=== PATIENT | male | born 1980 | race Caucasian/White ===

== ENCOUNTER 2022-11-04 12:00 | Emergency (ER) | payer OTHER ==
[~2022-11-04] VITALS: Ht 175.3 cm; Wt 80.7 kg
[2022-11-04] MEDS ORDERED: IOHEXOL 350 100 ML INFUS..BTL ONE (12:48)
[2022-11-04] MEDS ORDERED: IV NORMAL SALINE 250 ML IV ONE (12:48)
[2022-11-04] MEDS ORDERED: SWABABLE VALVE TRANSFER SET EA MC ONE (12:48)
[2022-11-04 12:50] LABS: HEMATOCRIT 44.8 % (36.7-47.1); MEAN CORPUSCULAR HEMOGLOBIN 29.7 uug (23.8-33.4); MEAN CORPUSCULAR VOLUME 90.1 fL (73.0-96.2); PLATELET COUNT (AUTO) 189 K/uL (152-348)
[2022-11-04 13:06] LABS: ETHANOL < 3 MG/DL (0-0)
[2022-11-04 13:38] LABS: CARBON DIOXIDE 27 mmol/L (21-32); CHLORIDE 106 mmol/L (98-107); GLUCOSE 97 mg/dL (74-106); UREA NITROGEN, BLOOD 18 mg/dL (7-18)
[2022-11-04] MEDS ORDERED: LAMICTAL (13:38)
[2022-11-04] MEDS ORDERED: KEPPRA (13:38)
[2022-11-04] MEDS ORDERED: ASPIRIN 81 MG TAB.CHEW ONE (13:41)
[2022-11-04] MEDS ORDERED: ASPIRIN 81 MG TAB.CHEW PO ONE (13:45)
[2022-11-04 13:52] LABS: ALANINE AMINOTRANSFERASE 31 U/L (16-63); ALKALINE PHOSPHATASE 47 U/L (50-136); ASPARTATE AMINOTRANSFERASE 13 U/L (15-37); BILIRUBIN,DIRECT 0.1 mg/dL (0.0-0.2); BILIRUBIN,TOTAL 0.3 mg/dL (0.2-1.0); TOTAL PROTEIN, SERUM 6.6 g/dL (6.4-8.2)
[2022-11-04 13:56] LABS: *BILIRUBIN,URIN NEGATIVE (NEGATIVE); *BLOOD, URINE NEGATIVE (NEGATIVE); *CLARITY,URINE CLEAR (CLEAR); *KETONES,URINE NEGATIVE (NEGATIVE); *UROBILINOGEN,URINE 0.2 E.U./dl (NORMAL); LEUKOCYTE ESTERASE ,URINE NEGATIVE (NEGATIVE); NITRITE, URINE NEGATIVE (NEGATIVE); UGLUCOSE NEGATIVE (NEGATIVE)
[2022-11-04 14:01] LABS: *COLOR,URINE STRAW (YELLOW)
[2022-11-04 14:10] LABS: *AMPHETAMINE, URINE NEGATIVE (NEGATIVE); *CANNABINOID, URINE NEGATIVE (NEGATIVE); *COCCAINE, URINE POSITIVE (NEGATIVE); *PHENCYCLIDINE SCREEN,URINE NEGATIVE (NEGATIVE)
== END 2022-11-04 13:53 | disposition left against medical advice (07) ==
LOC: ER 12:04
DX: R41.82 Altered mental status, unspecified (principal); R27.0 Ataxia, unspecified; R47.1 Dysarthria and anarthria; Z87.820 Personal history of traumatic brain injury; G40.909 Epilepsy, unspecified, not intractable, without status epilepticus
CPT/HCPCS: 80076; 80048; 81003; 85025; 85730; 84484; 36415; 93005; 71045; 70450; 70496; 70498; 99291; 83605; 80320; 80307; Q9967; A4663; G0480

== ENCOUNTER 2023-01-14 19:21 | Emergency (ER) | payer OTHER ==
[~2023-01-14] VITALS: Ht 172.7 cm; Wt 88.5 kg
[~2023-01-14 19:21] MED LIST: KEPPRA; LAMICTAL
--- NOTE | 2023-01-14 19:21 | NUR ---
PT BIBA TO [facility], FOR SEIZURE, WITNESSED BY SON. PT PLACED ON MONITOR WITH VSS AND NO SEIZURE ACTIVITY OBSERVED.
[2023-01-14] MEDS ORDERED: QUET25TA PO (19:27)
[2023-01-14] MEDS ORDERED: DIVA500T2 PO (19:27)
[2023-01-14] MEDS ORDERED: LAMO25TA10 PO (19:27)
[2023-01-14] MEDS ORDERED: IV NORMAL SALINE 1000 ML BAG IV ONE (19:30)
--- NOTE | 2023-01-14 19:40 | NUR ---
A H/L #22 WAS STARTED IN [facility], LABS WERE DRAWN/SENT TO LAB.
[2023-01-14 19:48] LABS: HEMATOCRIT 45.8 % (36.7-47.1); MEAN CORPUSCULAR HEMOGLOBIN 30.7 uug (23.8-33.4); MEAN CORPUSCULAR VOLUME 89.4 fL (73.0-96.2); PLATELET COUNT (AUTO) 234 K/uL (152-348)
[2023-01-14 20:03] LABS: CARBON DIOXIDE 20 mmol/L (21-32); CHLORIDE 105 mmol/L (98-107); CREATININE 1.5 mg/dL (0.6-1.3); GLUCOSE 120 mg/dL (74-106); POTASSIUM 4.7 mmol/L (3.5-5.1); UREA NITROGEN, BLOOD 15 mg/dL (7-18)
[2023-01-14 20:20] LABS: ALANINE AMINOTRANSFERASE 45 U/L (16-63); ALKALINE PHOSPHATASE 107 U/L (50-136); ASPARTATE AMINOTRANSFERASE 32 U/L (15-37); BILIRUBIN,DIRECT 0.1 mg/dL (0.0-0.2); BILIRUBIN,TOTAL 0.3 mg/dL (0.2-1.0); TOTAL PROTEIN, SERUM 7.4 g/dL (6.4-8.2)
[2023-01-14] MEDS ORDERED: DIVALPROEX 500 MG TABLET.DR PO ONE ×2 (21:15→21:42)
[2023-01-14 21:42] LABS: *AMPHETAMINE, URINE NEGATIVE (NEGATIVE); *CANNABINOID, URINE NEGATIVE (NEGATIVE); *COCCAINE, URINE NEGATIVE (NEGATIVE); *PHENCYCLIDINE SCREEN,URINE NEGATIVE (NEGATIVE)
[2023-01-14] MEDS ORDERED: LORAZEPAM 0.5 MG TABLET PO ONE (21:45)
[2023-01-14] MEDS ORDERED: LORAZEPAM 1 MG TABLET ONE (21:50)
--- NOTE | 2023-01-14 22:00 | NUR ---
PT WAS A,A AND O X 4 WITH VSS, NO SEIZURE ACTIVITY AND NAD OBSERVED.Patient discharged to home in stable condition. Written and verbal after care instructions given. Patient verbalizes understanding of instructions. Stressed follow up or return to ER for worsening s/s. PT AMB OUT WITH STEADY GAIT. SISTER DRIVING PT HOME.
[2023-01-14 22:29] VITALS: BP 128/83
== END 2023-01-14 22:00 | disposition home or self-care (01) ==
LOC: ER 19:22
DX: R56.9 Unspecified convulsions (principal); Z79.899 Other long term (current) drug therapy
CPT/HCPCS: 80076; 80048; 83735; 80164; 85025; 36415; 93005; 99284; 96360; 96361; 80320; 80307; J7040; A4663; G0480

== ENCOUNTER 2025-06-01 10:29 | Emergency (ER) | payer OTHER ==
[~2025-06-01] VITALS: Ht 175.3 cm; Wt 81.6 kg
[~2025-06-01 10:29] MED LIST changes: +DIVA500T2 PO; +HYDR25SU13 RC; +LAMO25TA10 PO; +OXYC-128 PO; +QUET25TA PO
[2025-06-01 11:32] LABS: PLATELET COUNT (AUTO) 319 K/uL (152-348); RED BLOOD CELL COUNT(AUTO) 5.53 MIL/uL (4.06-5.63); RED CELL DISTRIBUTION WIDTH 20.1 % (12.1-16.2); WHITE BLOOD COUNT (AUTO) 7.4 K/uL (3.6-10.2)
[2025-06-01] MEDS ORDERED: ONDANSETRON 4 MG/2 ML VIAL ONE (11:36)
[2025-06-01] MEDS: IV NORMAL SALINE 1000 ML BAG IV ONE (11:37)
[2025-06-01] MEDS: ONDANSETRON 4 MG/2 ML VIAL IV ONE (11:37)
[2025-06-01] MEDS: MORPHINE SULFATE 4 MG/1 ML DISP.SYRIN IV ONE (11:37)
[2025-06-01] MEDS ORDERED: MORPHINE SULFATE 4 MG/1 ML DISP.SYRIN ONE (11:37)
[2025-06-01 11:53] LABS: ASPARTATE AMINOTRANSFERASE 56.0 U/L (15-37); CREATININE 1.4 mg/dL (0.6-1.3); SODIUM SERUM 136.0 mmol/L (136-145); TOTAL PROTEIN, SERUM 6.6 g/dL (6.4-8.2); UREA NITROGEN, BLOOD 20.0 mg/dL (7-18)
[2025-06-01] MEDS ORDERED: HYDROMORPHONE 1 MG/1 ML DISP.SYRIN ONE ×2 (14:24→17:59)
[2025-06-01] MEDS: HYDROMORPHONE 1 MG/1 ML DISP.SYRIN IV ONE ×2 (14:26→18:02)
[2025-06-01 19:28] VITALS: BP 135/95; O2SAT 95
== END 2025-06-01 19:39 | disposition short-term general hospital (02) ==
LOC: ER 10:29
DX: K64.5 Perianal venous thrombosis (principal); G40.909 Epilepsy, unspecified, not intractable, without status epilepticus; R00.2 Palpitations; Z87.19 Personal history of other diseases of the digestive system; Z88.7 Allergy status to serum and vaccine
CPT/HCPCS: 99285; 96374; 96375; 71045; 96361; 80076; 80048; 85025; 85610; 36415; 93005; 96376; J2405; J1171 ×2; J2270; J7040; A4606; A4663